=== PATIENT | male | born 1985 | race Caucasian/White ===

== ENCOUNTER 2022-05-03 00:34 | Emergency (ER) | payer SELFPAY ==
[~2022-05-03] VITALS: Ht 175.3 cm; Wt 85.0 kg
[2022-05-03 01:02] LABS: CHLORIDE 111 mEq/L (98-107)
[2022-05-03 01:05] LABS: PROTHROMBIN TIME 10.5 sec (9.6-11.0)
[2022-05-03] MEDS ORDERED: ACETAMINOPHEN 325MG TABLET PO ONE (01:45)
[2022-05-03 01:59] LABS: BASOPHILS % 0.5 % (0.0-2.0); EOSINOPHILS % 0.2 % (0.0-5.0); HEMATOCRIT. 48.9 % (42.0-52.0); HEMOGLOBIN. 16.6 g/dL (14.0-18.0); LYMPHOCYTES % 22.8 % (20.0-50.0); MEAN CORPUSCULAR HEMOGLOBIN 29.6 pg (28.0-32.0); MEAN CORPUSCULAR VOLUME 87.3 fL (80.0-94.0); MEAN PLATELET VOLUME 6.5 fl (7.4-10.4); MONOCYTES % 6.9 % (2.0-8.0); NEUTROPHILS % 69.6 % (40.0-76.0); PLATELET 472 x1000/uL (130-400); RED CELL DISTRIBUTION WIDTH 13.3 % (11.6-14.6)
[2022-05-03 02:12] LABS: ETHANOL BLOOD 387 mg/dL
[2022-05-03] MEDS ORDERED: LIDOCAINE 5% PATCH TOP STA (03:49)
[2022-05-03] MEDS ORDERED: KETOROLAC 30MG/ML VIAL IV ONE (04:00)
[2022-05-03] MEDS ORDERED: IBUP-2028 MT (05:12)
[2022-05-03] MEDS ORDERED: TOPUD PO (05:12)
[2022-05-03] MEDS ORDERED: LIDO1ADH23 TP (05:12)
[2022-05-03] MEDS ORDERED: IOHEXOL-300 100 ML BOTTLE ONE (07:13)
[2022-05-03] MEDS ORDERED: LIDOCAINE 5% PATCH TOP NR (07:15)
[2022-05-03 08:03] VITALS: BP 103/76
== END 2022-05-03 08:10 | disposition home or self-care (01) ==
LOC: ER 00:40
DX: M54.50 Low back pain, unspecified (principal)
CPT/HCPCS: 36415; 70450; 72125; 74177; 80053; 80320; 85025; 85610; 86850; 86900; 86901; 99285; Q9967; G0480